=== PATIENT | male | born 1955 | race Caucasian/White ===

== ENCOUNTER → 2021-02-19 | Outpatient (CLI) | payer BC ==
[~2021-02-19] MED LIST: AMLODIPINE BESY10 MG; ATORVASTATIN CA40 MG; DICLOFENAC SODI75 M1; DIOVAN320 MG; FLEXERIL; HYDROCHLOROTHIA25 M1; HYDROCODON-ACE1 EACH; LEXAPRO20 MG; PERCOCET 5-3251 EACH PO; PLAVIX 75 MG TA75 M1; TOPROL XL50 MG
== END ==
LOC: SJCVCIMAG 12:37
PROVIDERS: ATTEND Internal Medicine Cardiovascular Disease
DX: I65.23 Occlusion and stenosis of bilateral carotid arteries (principal); I70.203 Unspecified atherosclerosis of native arteries of extremities, bilateral legs; I10 Essential (primary) hypertension; M79.89 Other specified soft tissue disorders; F17.200 Nicotine dependence, unspecified, uncomplicated; Z95.820 Peripheral vascular angioplasty status with implants and grafts

== ENCOUNTER → 2021-03-05 | Outpatient (CLI) | payer BC | LOC: SJCVCIMAG 03-02 10:23 | PROVIDERS: ATTEND Internal Medicine Cardiovascular Disease | DX: I08.0 Rheumatic disorders of both mitral and aortic valves (principal); I11.9 Hypertensive heart disease without heart failure; I25.10 Atherosclerotic heart disease of native coronary artery without angina pectoris; E78.5 Hyperlipidemia, unspecified; I73.9 Peripheral vascular disease, unspecified; I45.10 Unspecified right bundle-branch block; F17.200 Nicotine dependence, unspecified, uncomplicated; Z79.899 Other long term (current) drug therapy; Z86.73 Personal history of transient ischemic attack (TIA), and cerebral infarction without residual deficits ==

== ENCOUNTER 2021-08-21 04:50 | Emergency (ER) | payer MEDICARE ==
[~2021-08-21] VITALS: Ht 193 cm; Wt 120.2 kg
[2021-08-21 05:40] LABS: ABSOLUTE NEUTROPHILS 4.6 thou/uL (1.4-8.2); BASOPHILS 1.5 % (0.0-2.0); EOSINOPHILS 5.3 % (0.0-3.0); HEMATOCRIT 42.9 % (42.0-52.0); LYMPHOCYTES 14.7 % (24.0-44.0); MCH 32.1 pg (26.0-34.0); MCHC 34.8 g/dL (28.0-37.0); MONOCYTES 7.9 % (1.0-8.0); PLATELET COUNT 205 thou/uL (150-400); POLYS 70.6 % (36.0-66.0); RBC 4.66 mil/uL (4.50-6.00); RDW 14.2 % (10.5-14.5); WBC 6.5 thou/uL (4.0-11.0)
[2021-08-21 05:50] LABS: CALCIUM 9.3 mg/dL (8.5-10.1); POTASSIUM 3.6 mmol/L (3.5-5.1)
[2021-08-21 08:12] VITALS: BP 152/75
--- NOTE | 2021-08-23 07:34 | EKG ---
[address] [place] [address] ELECTROCARDIOGRAM REPORT Name: VALENTINE RAWLS Room #: DEP Aime#: [id number] Admission: 08/21/21 Attend Phys: Discharge: 08/21/21 Date of : 55 Report #: [id number] [facility] ED Test Date: 2021-08-21 Test Time: 04:56:00 Pat Name: VALENTINE RAWLS Department: Room: Gender: M [employer] Estimator: adi : 1955 Requested By: Roel Enciso Order Number: [id number] MD: Martin Cope Measurements Intervals [place] Rate: 65 P: -30 SD: 183 QRS: -30 QRSD: 130 T: 110 QT: 438 QTc: 456 Interpretive Statements Sinus rhythm LBBBi Compared to ECG 12/04/2007 08:01:26 Left bundle-branch block now present Electronically Signed On 08-23-2021 7:34:39 CASH MANAGEMENT COORDINATOR by Martin Cope [email or web address] <ELECTRONICALLY SIGNED> By: Martin Cope MD, [facility] 08/23/21 0734 [id number] Martin Cope MD, FACC /EPI
== END 2021-08-21 08:12 | disposition home or self-care (01) ==
LOC: ER 04:50
PROVIDERS: Student in an Organized Health Care Education/Training Program
DX: R06.02 Shortness of breath (principal); R00.2 Palpitations; Z79.899 Other long term (current) drug therapy; Z88.8 Allergy status to other drugs, medicaments and biological substances